=== PATIENT | female | born 1960 | race Caucasian/White ===

== ENCOUNTER 2016-10-29 19:47 | Emergency (ER) | payer OTHER ==
[~2016-10-29 19:47] MED LIST: GLUCPH PO; LOTREL1 CA2 PO; PRAVAC PO; VITC500 PO; [UNRECOGNIZED DRUG - OTHER] PO
== END 2016-10-29 23:30 | disposition home or self-care (01) ==
LOC: ER 19:47
DX: M54.16 Radiculopathy, lumbar region (principal); I10 Essential (primary) hypertension; E11.9 Type 2 diabetes mellitus without complications; E07.9 Disorder of thyroid, unspecified; Z79.84 Long term (current) use of oral hypoglycemic drugs; Z79.899 Other long term (current) drug therapy
CPT/HCPCS: 96374; 96375; 96376; 99283; J1170; J2360; J2405